=== PATIENT | female | born 1990 | race Caucasian/White ===

== ENCOUNTER 2017-01-23 07:43 | Day surgery (SDC) | payer OTHER ==
[2017-01-23 08:12] VITALS: BMI 20.6
--- NOTE | 2017-01-23 09:10 | CP.SDSHP ---
Same Day Surgery H & P - History Proposed Procedure: EGD Pre-Op Diagnosis: SEE NOTES - Previous Medical/Surgical History Misc: Other Pain: 4.Moderate Pain - Allergies Allergies: Allergies No Known Allergies Allergy (Verified 01/23/17 08:12) - Physical Exam General Appearance: N Vital Signs: Vital Signs 01/23/17 08:13 Temperature 97.8 F Pulse Rate 65 Respiratory 20 Rate Blood Pressure 107/62 O2 Sat by Pulse 100 Oximetry Mental Status: Alert & Oriented x3 Neuro: WNL Heart: WNL Lungs: WNL GI: Other - {Optional Preform as Required} Breast: WNL Abdomen: Other Rectal: Other Integument: WNL : WNL Ortho: WNL ENT: WNL - Impression Pt. Evaluated Today:Candidate for Anesthesia & Procedure: Yes - Date & Time Time: 09:10 Short Stay Discharge - Short Stay Discharge Admitting Diagnosis/Reason for Visit: DYSPEPSIA Disposition: HOME/ ROUTINE
[2017-01-23] MEDS ORDERED: Belladonna-Phenobarbital PO STA (09:12)
[2017-01-23] MEDS ORDERED: Pantoprazole 40 mg EC Tab PO STA (09:17)
[2017-01-23] MEDS ORDERED: Propofol 10 mg/ml Inj (20 ML) ONE (09:21)
[2017-01-23 09:55] VITALS: TEMP 98.6; O2SAT 100
[2017-01-23 10:43] VITALS: BP 119/59; PULSE 70; RESP 18
== END 2017-01-23 10:40 | disposition home or self-care (01) ==
LOC: C.ENDO 07:43
PROVIDERS: ATTEND Specialist
DX: K29.50 Unspecified chronic gastritis without bleeding (principal); K29.80 Duodenitis without bleeding; K44.9 Diaphragmatic hernia without obstruction or gangrene; B96.81 Helicobacter pylori [H. pylori] as the cause of diseases classified elsewhere
CPT/HCPCS: 43239; 84703; 88305; 88342; J2704

== ENCOUNTER 2017-01-30 07:54 | Day surgery (SDC) | payer OTHER ==
[2017-01-30] MEDS ORDERED: Propofol 10 mg/ml Inj (20 ML) ONE (09:48)
--- NOTE | 2017-01-30 09:53 | CP.SDSHP ---
Same Day Surgery H & P - History Proposed Procedure: COLONSCOPY Pre-Op Diagnosis: SEE NOTES - Previous Medical/Surgical History Misc: Other Pain: 4.Moderate Pain - Allergies Allergies: Allergies No Known Allergies Allergy (Verified 01/23/17 08:12) - Physical Exam General Appearance: N Vital Signs: Vital Signs 01/30/17 08:59 Temperature 98 F Pulse Rate 77 Respiratory 19 Rate Blood Pressure 104/67 O2 Sat by Pulse 100 Oximetry Mental Status: Alert & Oriented x3 Neuro: WNL Heart: WNL Lungs: WNL GI: Other - {Optional Preform as Required} Breast: WNL Abdomen: Other Rectal: Other Integument: WNL : WNL Ortho: WNL ENT: WNL - Impression Pt. Evaluated Today:Candidate for Anesthesia & Procedure: Yes - Date & Time Time: 09:53 Short Stay Discharge - Short Stay Discharge Admitting Diagnosis/Reason for Visit: RECTAL BLEED Disposition: HOME/ ROUTINE
[2017-01-30 10:28] VITALS: TEMP 97.8
[2017-01-30] MEDS ORDERED: Belladonna-Phenobarbital PO ONE (10:40)
[2017-01-30 11:17] VITALS: O2SAT 99
[2017-01-30 13:29] VITALS: BP 100/50; PULSE 68; RESP 17
== END 2017-01-30 11:25 | disposition home or self-care (01) ==
LOC: C.ENDO 07:54
PROVIDERS: ATTEND Specialist
DX: K64.8 Other hemorrhoids (principal)
CPT/HCPCS: 45380; 84703; 88305; J2704